=== PATIENT | female | born 1950 | race Caucasian/White ===

== ENCOUNTER 2022-06-28 06:33 | Day surgery (SDC) | payer OTHER ==
[~2022-06-28] VITALS: Ht 160 cm; Wt 64.5 kg
[2022-06-28] MEDS ORDERED: MIDAZOLAM HCL 5 MG/5 ML VIAL ONE (07:43)
[2022-06-28] MEDS ORDERED: MEPERIDINE 50 MG/ML VIAL ONE (07:43)
[2022-06-28 12:42] VITALS: BP_SYST 145
== END 2022-06-28 10:36 | disposition home or self-care (01) ==
LOC: SDS 06:33 → SMU 06:36 → SDS 10:36
PROVIDERS: ATTEND Internal Medicine Gastroenterology
DX: D50.9 Iron deficiency anemia, unspecified (principal); K31.7 Polyp of stomach and duodenum; Z20.822 Contact with and (suspected) exposure to COVID-19; Z79.899 Other long term (current) drug therapy
CPT/HCPCS: 43251; 82962; 36415; 43236; 88305; 88312; 88313; 99152; 87426; G0378; J2250; J2175

== ENCOUNTER 2023-05-01 06:36 | Day surgery (SDC) | payer OTHER ==
[~2023-05-01] VITALS: Ht 160 cm; Wt 64.9 kg
[2023-05-01] MEDS ORDERED: MIDAZOLAM HCL 5 MG/5 ML VIAL ONE (06:45)
[2023-05-01] MEDS ORDERED: MEPERIDINE 100 MG INJ. 100 MG/ML VIAL ONE (06:45)
[2023-05-01] MEDS ORDERED: SIMETHICONE 40 MG/0.6 ML ML ONE (06:45)
[2023-05-01] MEDS ORDERED: EPINEPHrine JECT 0.1 MG/ML SYR ONE (08:33)
[2023-05-07 13:17] VITALS: BP_SYST 200; PULSE 68; RESP 17; TEMP 98.1; O2SAT 100
== END 2023-05-01 10:12 | disposition home or self-care (01) ==
LOC: SDS 06:36 → SMU 06:38 → SDS 10:12
PROVIDERS: ATTEND Internal Medicine Gastroenterology
DX: D50.9 Iron deficiency anemia, unspecified (principal); K29.80 Duodenitis without bleeding; K29.70 Gastritis, unspecified, without bleeding; K31.7 Polyp of stomach and duodenum; K31.89 Other diseases of stomach and duodenum; I10 Essential (primary) hypertension; E11.9 Type 2 diabetes mellitus without complications; Z79.899 Other long term (current) drug therapy
CPT/HCPCS: 43239; 43236; 82962; 88305; 99153; 99152; G0378; J2250; J2175; C1889; J0171

== ENCOUNTER 2024-01-07 07:27 | Day surgery (SDC) | payer OTHER ==
[~2024-01-07] VITALS: Ht 160 cm; Wt 62.6 kg
[2024-01-07] MEDS ORDERED: MEPERIDINE 100 MG INJ. 100 MG/ML VIAL ONE (08:43)
[2024-01-07] MEDS ORDERED: MIDAZOLAM HCL 5 MG/5 ML VIAL ONE (08:43)
[2024-01-07 08:45] VITALS: O2SAT 99
[2024-01-07 13:39] VITALS: BP_SYST 148; PULSE 63; RESP 17
== END 2024-01-07 11:23 | disposition home or self-care (01) ==
LOC: SDS 07:27 → SMU 07:34 → SDS 11:23
PROVIDERS: ATTEND Internal Medicine Gastroenterology
DX: K31.7 Polyp of stomach and duodenum (principal); K29.50 Unspecified chronic gastritis without bleeding; K31.A0 Gastric intestinal metaplasia, unspecified; K26.9 Duodenal ulcer, unspecified as acute or chronic, without hemorrhage or perforation; K31.89 Other diseases of stomach and duodenum; I10 Essential (primary) hypertension; E11.9 Type 2 diabetes mellitus without complications; Z79.899 Other long term (current) drug therapy
CPT/HCPCS: 43251; 43239; 99152; 82948; 88305; 88312; 88313; 99153; G0378; J2250; J2175